=== PATIENT | male | born 1995 | race Caucasian/White ===

== ENCOUNTER 2017-05-23 19:42 | Observation (INO) | payer OTHER ==
[~2017-05-23] VITALS: Ht 182.9 cm; Wt 89.8 kg
[2017-05-23] MEDS ORDERED: SODIUM CHLORIDE 0.9% 1000ML 1,000 ML IV STA ×2 (19:51→21:29)
[2017-05-23] MEDS ORDERED: DiphenhydrAMINE HCL 50 MG/ML VIAL IV STA (19:51)
[2017-05-23] MEDS ORDERED: RANITIDINE HCL 50 MG/100 ML D5W IV STA (19:51)
[2017-05-23] MEDS ORDERED: METHYLPREDNISOLONE 125 MG VIAL IV STA (19:51)
[2017-05-23] MEDS ORDERED: EpINEphrine INJ 1MG/ML AMP 1 MG/ML AMP IM STA (19:52)
--- NOTE | 2017-05-23 19:57 | EMERGENCY ROOM VISIT NOTE ---
History Report prepared by Scribe: Kristen Harrison Under the Supervision of: Dr. Alonso Salvador D.O. First contact with patient: 19:49 Chief Complaint: ALLERGIC REACTION Stated Complaint: ALLERGIC REACTION History of Present Illness The patient is a 22 year old male who presents to the Emergency Room with complaints of an allergic reaction that started prior to arrival. He admits to a history of severe allergies to peanuts and tree nuts. This evening, he was out to dinner for [place] food with his girlfriend when after eating, he started to feel itchy all over and his throat felt like it was "tightening". He denies any chest pain. He took 1 Benadryl when he got home that provided minimal relief. He admits to some lightheadedness but denies any nausea or vomiting. The patient states his only medical problem is allergies and he takes daily Zyrtec. Source of History: patient Onset: ENVIRONMENTAL LEAD Position: other (global) Timing: constant Modifying Factors (Relieving): other (Benadryl) Associated Symptoms: No chest pain, No nausea, No vomiting Review of Systems See HPI for pertinent positives & negatives. A total of 10 systems reviewed and were otherwise negative. Past Medical & Surgical Medical Problems: (1) Allergic reaction (2) Peanut allergy (3) Tree nut allergy Social History Smoking Status: Never Smoker Alcohol Use: occasionally Drug Use: none Marital Status: single Housing Status: lives with roommate Occupation Status: [employer] student Current/Historical Medications Scheduled Cetirizine (Zyrtec), 10 MG PO DAILY Allergies Coded Allergies: Shellfish (Verified Allergy, Intermediate, hives, 05/23/17) NUTS (Verified Allergy, Unknown, hives, 05/23/17) Physical Exam Vital Signs Date Time Temp Pulse Resp B/P (MAP) Pulse Ox O2 Delivery O2 Flow Rate FiO2 05/23/17 21:35 120 24 113/66 91 Nebulizer 05/23/17 20:51 119 20 111/61 95 Room Air 05/23/17 19:55 121 05/23/17 19:53 97 Room Air 05/23/17 19:52 Room Air 97 05/23/17 19:45 36.5 132 20 120/54 100 Room Air Physical Exam GENERAL: Patient is awake, alert and mildly anxious appearing EYES: Bilateral conjunctival injection. The pupils are round and reactive. EARS, NOSE, MOUTH AND THROAT: Mild uvular hypertrophy, no drooping or stridor noted. The nose is without any evidence of any deformity. Mucous membranes are moist tongue is midline NECK: The neck is nontender and supple. RESPIRATORY: Normal respiratory effort is noted there is no evidence of wheezing rhonchi or rales CARDIOVASCULAR: Tachycardic heart rate, regular rhythm noted, there no murmurs rubs or gallops noted to auscultation, normal S1 normal S2 GASTROINTESTINAL: The abdomen is soft. Bowel sounds are present in all quadrants. Abdomen is nontender MUSCULOSKELETAL/EXTREMITIES: There is no evidence of gross deformity full range of motion is noted in the hips and shoulders SKIN: Generalized erythema and flushing noted, consistent with allergic reaction. There are no petechiae, pallor or cyanosis noted. NEUROLOGIC: Patient is awake alert and oriented x3 Medical Decision & Procedures Medications Administered Medications (Trade) Dose Ordered Sig/Elsie Route Start Time Stop Time Status Last Admin Dose Admin Sodium Chloride 1,000 ml @ 999 mls/hr Q1H1M STAT IV 05/23/17 19:51 05/23/17 20:51 DC 05/23/17 20:09 999 MLS/HR Methylprednisolone Sodium Succinate (Solu-Medrol IV) 125 mg NOW STAT IV 05/23/17 19:51 05/23/17 19:52 DC 05/23/17 20:03 125 MG Diphenhydramine HCl (Benadryl Inj) 50 mg NOW STAT IV 05/23/17 19:51 05/23/17 19:52 DC 05/23/17 20:04 50 MG Ranitidine HCl (zANTac IV) 50 mg NOW STAT IV 05/23/17 19:51 05/23/17 19:52 DC 05/23/17 20:05 50 MG Epinephrine HCl (EpINEphrine INJ 1MG/ML AMP/VIAL) 0.3 mg NOW STAT IM 05/23/17 19:52 05/23/17 19:53 DC 05/23/17 20:06 0.3 MG Ondansetron HCl (Zofran Inj) 4 mg NOW STAT IV 05/23/17 20:45 05/23/17 20:50 DC 05/23/17 20:51 4 MG Albuterol/ Ipratropium (Duoneb) 3 ml NOW STAT INH 05/23/17 21:29 05/23/17 21:30 DC 05/23/17 21:32 3 ML Epinephrine (Epipen) 0.3 mg NOW STAT IM 05/23/17 21:29 05/23/17 21:30 DC 05/23/17 21:38 0.3 MG Dexamethasone Sodium Phosphate (Decadron Inj) 10 mg NOW ONCE IV 05/23/17 21:30 05/23/17 21:31 DC 05/23/17 21:35 10 MG Sodium Chloride 1,000 ml @ 999 mls/hr Q1H1M STAT IV 05/23/17 21:29 05/23/17 22:29 DC 05/23/17 21:37 999 MLS/HR ED Course 1950: The patient was evaluated in room B2. A complete history and physical examination were performed. 1950: Zantac 50 mg IV, Benadryl 50 mg IV, Solu-Medrol 125 mg IV, NSS 1000 ml @ 999 mls/hr IV. 1951: Epinephrine HCl 0.3 mg IM. 2044: Zofran 4 mg IV. 2128: NSS 1000 ml @ 999 mls/hr IV, Epipen 0.3 mg IM, DuoNeb 3 ml INH. 2129: Decadron 10 mg IV. 2138: I discussed the patients case with Dr. Werner, [facility] Hospitalist. The patient will be further evaluated. Medical Decision Prior records/ancillary studies reviewed. Triage Nursing notes reviewed. The patient's history was concerning for possible allergic reaction. Differential diagnosis: Etiologies such as allergic reaction, anaphylaxis, urticaria, Copeland-Gary syndrome, toxic epidermal necrolysis, erythema multiforme, cellulitis, as well as others were entertained. The patient is a 22-year-old male who has a allergy to peanuts who presented to the emergency department after eating [place] food and developed urticaria. He states that he normally would've given himself his EpiPen but he did not have on with him. The patient had significant flushing and had some swelling in the oropharynx. He was treated with steroids and antihistamines and epinephrine initially. His symptoms initially improved but he started to have a rebound effect. He was treated again with epinephrine and bronchodilator therapy. He started to have hypoxia. He was treated with a DuoNeb at that time. He was reevaluated multiple times. Because of his ongoing symptoms I discussed his case with the on-call [facility] hospitalist group. They've agreed to evaluate the patient in the emergency department for further management and disposition. Medication Reconcilliation Current Medication List: was personally reviewed by me Blood Pressure Screening Patient's blood pressure: Normal blood pressure Blood pressure disposition: Did not require urgent referral Consults Time Called: 2134 Consulting Physician: Dr. Werner [facility] Hospitalist Returned Call: 2138 I discussed the patients case with Dr. Werner [facility] Hospitalist. The patient will be further evaluated. Impression Primary Impression: Anaphylaxis Additional Impression: Hypoxia Scribe Attestation The scribe's documentation has been prepared under my direction and personally reviewed by me in its entirety. I confirm that the note above accurately reflects all work, treatment, procedures, and medical decision making performed by me. Departure Information Dispostion Being Evaluated By Hospitalist Patient Instructions My [facility] Health Problem Qualifiers Primary Impression: Anaphylaxis Encounter type: initial encounter Qualified Codes: T78.2XXA - Anaphylactic shock, unspecified, initial encounter
[2017-05-23] MEDS ORDERED: ONDANSETRON INJ 2 MG/ML 2 ML VIAL IV STA (20:45)
[2017-05-23] MEDS ORDERED: CETI10TA84 PO (21:15)
[2017-05-23] MEDS ORDERED: EPINEPHRINE ADULT AUTO-INJECT 0.3 MG SYR IM STA (21:29)
[2017-05-23] MEDS ORDERED: ALBUT/IPRATROP 3MG/0.5MG NEB 3 ML VIAL INH STA (21:29)
[2017-05-23] MEDS ORDERED: DEXAMETHASONE SOD INJ 10 MG/ML VIAL IV ONE (21:30)
[2017-05-23] MEDS ORDERED: POLYETHYLENE (MIRALAX) 17 GM PACK PO PRN (22:15)
[2017-05-23] MEDS ORDERED: MAGNESIUM HYDROXIDE SUSP 30 ML UDC PO PRN (22:15)
[2017-05-23] MEDS ORDERED: METHYLPREDNISOLONE IV 60 MG in SYRINGE 0 ML IV SCH (22:15)
[2017-05-23] MEDS ORDERED: DiphenhydrAMINE INJ 50 MG in SYRINGE 0 ML IV SCH (22:15)
[2017-05-23] MEDS ORDERED: ALUMINUM/MAGNESIUM/SIMETH (MAALOX MAX) 30 ML UDC PO PRN (22:15)
[2017-05-23] MEDS ORDERED: ACETAMINOPHEN 325 MG TAB PO PRN (22:15)
[2017-05-23] MEDS ORDERED: ONDANSETRON INJ 2 MG/ML 2 ML VIAL IV PRN (22:15)
--- NOTE | 2017-05-23 22:26 | History and Physical ---
History & Physical Date & Time of Service: May 23, 2017 at 22:16 Chief Complaint: Allergic Reaction Primary Care Physician: [facility] History of Present Illness Source: patient The patient is a 22 year male who presents with acute shortness of breath. He has a know allergy to tree nuts, peanuts fish and shellfish. He was out this afternoon eating at a [employer] restaurant. He a burrito (does not recall any peanut products being in it), and he suddenly had shortness of breath. He denies wheezing. He did feel slightly lightheaded without losing consciousness. He did state progressive itching across his whole body, and initially states he had hives. He is meant to carry around an epipen but did not have it. His girlfriend drove him to the ED for further evaluation. In the ED was noted to by hypoxic. He was treated with 2 rounds of epinephrine IM, Solu-medrol, Dexamethasone, Benadryl and Ranitidine. He was also treated with Duonebs. He notes that he currently feels good and denies feeling short of breath. He denies feeling his throat closing off, tingling in his throat or feeling hoarse. Past Medical/Surgical History Seasonal allergies Right Rotator Cuff surgery Family History HTN Social History Smoking Status: Never Smoker Smokeless Tobacco Use: No Alcohol Use: none Drug Use: none Marital Status: single Housing status: lives with friends, lives with roommate Occupational Status: [employer] student Immunizations History of Influenza Vaccine: Unknown History of Tetanus Vaccine?: Unknown History of Pneumococcal: Unknown History of Hepatitis B Vaccine: Unknown Multi-Drug Resistant Organisms History of MDRO: No Allergies Coded Allergies: Shellfish (Verified Allergy, Intermediate, hives, 05/23/17) NUTS (Verified Allergy, Unknown, hives, 05/23/17) Home Medications Scheduled Cetirizine (Zyrtec), 10 MG PO DAILY Review of Systems Constitutional: No fever, No chills, No sweats Eyes: No eye pain, No redness, No discharge ENT: No nasal symptoms, No sore throat, No tinnitus Respiratory: No cough, No sputum, No wheezing Cardiovascular: No chest pain, No claudication, No palpitations Abdomen: No pain, No nausea, No vomiting, No diarrhea, No constipation Genitourinary - Male: No dysuria, No urinary frequency Neurologic: No paralysis, No weakness, No numbness/tingling, No vertigo Psychiatric: No anhedonism, No anxiety, No insomnia Hematologic / Lymphatic: No clotting problems, No swollen lymph nodes, No night sweats Integumentary: No rash, No itch, No new/changing skin lesions, No color change Physical Exam Vital Signs Date Time Temp Pulse Resp B/P (MAP) Pulse Ox O2 Delivery O2 Flow Rate FiO2 05/23/17 21:35 120 24 113/66 91 Nebulizer 05/23/17 20:51 119 20 111/61 95 Room Air 05/23/17 19:55 121 05/23/17 19:53 97 Room Air 05/23/17 19:52 Room Air 97 05/23/17 19:45 36.5 132 20 120/54 100 Room Air General Appearance: WD/WN, no apparent distress Head: normocephalic, atraumatic Eyes: normal inspection, EOMI ENT: hearing grossly normal, pharynx normal Neck: supple, no adenopathy, no JVD Respiratory/Chest: lungs clear, no respiratory distress Cardiovascular: regular rate, rhythm, no gallop, no murmur Abdomen/GI: normal bowel sounds, non tender, soft Back: no CVA tenderness, no muscle spasm Extremities/Musculoskelatal: no calf tenderness, no pedal edema Neurologic/Psych: alert, normal mood/affect, oriented x 3 Skin: normal color, warm/dry, no rash Lymphatic: no adenopathy Impression Assessment and Plan Pleasant 22 year old male with allergic reaction. Patient is being admitted due to persistent hypoxia and hives following ED evaluation. Labs are pending at this time. He needs to be monitored for rebound allergic reaction. Our plan is as follows: Allergic Reaction, concern for anaphylaxis - 2/2 possible occult peanut exposure - Solu-\Medrol 60 mg q6h - Benadryl 5 mg q6h + Famotidine - NSS + 20 KCl @ 125 ml/hr - EpiPen PRN for symptoms of anaphylaxis - [place] patient on having Epipen on at all times Seasonal Allergies - Hold Zyrtec given regimen above; can re-start as outpatient DVT Prophylaxis - SCD Knee, SHANTHI Hose Code Status - Level I Full Code Disposition - Telemetry Attending Addendum: I have physically seen and examined this patient, have directed the resident's medical activities, and agree with the H&P as noted above with the following exceptions as noted. The patient is awake, alert and oriented 3, well-developed and well-nourished , normocephalic and atraumatic, lying in bed and in no acute distress. HEENT--PERRL, EOMI, mucous membranes and oropharynx dry. Neck--supple, no JVD or bruits, thyroid normal, trachea midline, no adenopathy. Heart--normal S1 and S2, no extra beats, no murmurs, rubs or gallops. Lungs--clear bilaterally with good air movement, no respiratory distress, no accessory muscle use. Abdomen--normal bowel sounds and soft, nontender and nondistended, no hernias or masses, no organomegaly. Extremities--no cyanosis, clubbing or edema. There are good distal pulses b/l. Dermatologic--normal skin turgor, mildly erythematous with light macular rash, warm and dry, no abnormal lymph nodes. Neurologic--cranial nerves II through XII grossly intact, motor and sensory examination normal. Rheumatologic--normal range of motion, nontender, muscles and joints. Psychiatric--normal affect. Assessment and Plan: Anaphylactic reaction/known allergy to peanuts/question occult peanut exposure or new process-- Admit to the telemetry unit. Solu-Medrol 60 mg IV every 6 hours Benadryl 50 mg IV every 6 hours Famotidine 20 mg IV every 12 hours NSS plus KCl 20 mEq at 125 ML's per hour The patient does follow with an warehouse loader in [place] hometown. Advised him to avoid eating out at restaurants for now, and make a follow-up appointment with his warehouse loader at his earliest convenience. He can resume Zyrtec as an outpatient, or consider Xyzal. Level of Care Telemetry Advanced Directives Existing Advance Directive: No Existing Living Will: No Existing Power of Wax Ball Molder: No Resuscitation Status FULL RESUSCITATION VTE Prophylaxis VTE Risk Assessment Done? Y/N: Yes Risk Level: Moderate Given or contraindicated: TBright Stockings, SCD's Social Service Consult None Apply
[2017-05-23] MEDS ORDERED: EPINEPHRINE JUNIOR AUTO-INJECT 0.15 MG SYR IM PRN (22:30)
[2017-05-23 23:15] VITALS: BP 148/79; PULSE 108; TEMP 36.4; O2SAT 97; Ht 182.9 cm; Wt 89.8 kg
[2017-05-23] MEDS ORDERED: IV FLUIDS COMPLETED PRN (23:15)
[2017-05-23 23:47] LABS: HEMATOCRIT 46.1 % (42-52); MEAN CELL VOLUME 84.1 fL (80-100); MEAN CORPUSCULAR HEMOGLOBIN 30.8 pg (25-34); MEAN CORPUSCULAR HGB CONC 36.7 g/dl (32-36); MEAN PLATELET VOLUME 11.5 fL (7.4-10.4); PLATELET COUNT 194 K/uL (130-400); RED BLOOD COUNT 5.48 M/uL (4.7-6.1); WHITE BLOOD COUNT 12.59 K/uL (4.8-10.8)
[2017-05-23 23:59] VITALS: O2SAT 97
[2017-05-24 00:05] LABS: BUN/CREATININE RATIO 13.6 (10-20); CALCIUM 8.8 mg/dl (8.5-10.1); CREATININE 1.4 mg/dl (0.60-1.40); POTASSIUM 3.5 mmol/L (3.5-5.1)
[2017-05-24] MEDS: NSS + 20MEQ KCL 1000ML 1,000 ML IV SCH ×2 (00:06→07:53)
[2017-05-24] MEDS ORDERED: INFLUENZA VIRUS QUAD VACCINE 0.5 ML SYR IM. ONE (00:30)
[2017-05-24] MEDS ORDERED: INFLUENZA ADMINISTRATION CHARGE ONE (00:30)
[2017-05-24] MEDS: DiphenhydrAMINE HCL 50 MG/ML VIAL IV SCH ×2 (01:39→08:00)
[2017-05-24 03:47] VITALS: BP 121/68; PULSE 64; TEMP 37; O2SAT 95
[2017-05-24 04:00] VITALS: O2SAT 97
[2017-05-24] MEDS ORDERED: FAMOTIDINE IV INJ 20 MG in DEXTROSE 5% 100ML 100 ML IV SCH (04:00)
[2017-05-24] MEDS ORDERED: METHYLPREDNISOLONE IV 60 MG in SYRINGE 0 ML IV SCH (04:15)
[2017-05-24 06:50] LABS: HEMATOCRIT 44.8 % (42-52); MEAN CELL VOLUME 85.2 fL (80-100); MEAN CORPUSCULAR HEMOGLOBIN 30.6 pg (25-34); MEAN CORPUSCULAR HGB CONC 35.9 g/dl (32-36); MEAN PLATELET VOLUME 11.4 fL (7.4-10.4); PLATELET COUNT 167 K/uL (130-400); RED BLOOD COUNT 5.26 M/uL (4.7-6.1)
[2017-05-24 06:55] VITALS: PULSE 73; O2SAT 98
[2017-05-24 07:16] VITALS: BP 120/60; PULSE 78; TEMP 36.8; O2SAT 99
[2017-05-24 07:27] LABS: CALCIUM 9.7 mg/dl (8.5-10.1); CREATININE 1.2 mg/dl (0.60-1.40); POTASSIUM 4.6 mmol/L (3.5-5.1)
[2017-05-24] MEDS ORDERED: ALBUT/IPRATROP 3MG/0.5MG NEB 3 ML VIAL INH SCH (08:00)
[2017-05-24] MEDS ORDERED: DIPH25CA65 PO (08:58)
[2017-05-24] MEDS ORDERED: PRED10TA PO ×2 (08:58→09:26)
--- NOTE | 2017-05-24 08:59 | Discharge Instructions ---
Discharge Instructions Date of Service May 24, 2017. Admission Reason for Admission: Allergic Reaction Discharge Discharge Diagnosis / Problem: Anaphylaxis Discharge Goals Goal(s): Improve disease control Activity Recommendations Activity Limitations: as noted below No driving for 8 hours after taking Benadryl . Instructions / Follow-Up Instructions / Follow-Up You were diagnosed with anaphylaxis. You were treated with epinephrine x2, steroids and anti-histamines. Please take your EpiPen with you wherever you go and have one at home. Please follow up with your primary care provider in 1-2 weeks for a recheck of your condition. Current Hospital Diet Patient's current hospital diet: Regular Diet Discharge Diet Recommended Diet: Regular Diet Pending Studies Studies pending at discharge: no Medical Emergencies . Who to Call and When: Medical Emergencies: If at any time you feel your situation is an emergency, please call 911 immediately. . Non-Emergent Contact Non-Emergency issues call your: Primary Care Provider . . "Provider Documentation" section prepared by Darryn Neely. . VTE Core Measure Inpt VTE Proph given/why not?: Edmar Barnes, PACO's
--- NOTE | 2017-05-24 09:32 | Discharge Summary ---
Discharge Summary Date of Service May 24, 2017. (Darryn Neely MD) Discharge Summary Admission Date: May 23, 2017 at 22:08 Discharge Date: May 24, 2017 Discharge Disposition: Home Principal Diagnosis: Anaphylaxis Immunizations: Have You Had Influenza Vaccine: Unknown History of Tetanus Vaccine?: Unknown History of Pneumococcal: Unknown History of Hepatitis B Vaccine: Unknown (Darryn Neely MD) Medication Reconciliation New Medications: Diphenhydramine Hcl (Benadryl Allergy) 25 Mg Cap 2 CAP PO BID for 3 Days, #60 CAP 2 Refills Prednisone (Prednisone) 10 Mg Tab 10 MG PO UD for 3 Days, #7 TAB Discontinued Medications: Cetirizine (Zyrtec) 10 Mg Tab 10 MG PO DAILY, TAB Discharge Exam Feels well. No problems breathing. No lip swelling, tongue swelling or hives. All systems reviewed and otherwise negative. Physical Exam: General Appearance: WD/WN, no apparent distress Eyes: normal inspection (pupils equal) ENT: normal ENT inspection, pharynx normal Neck: supple Respiratory/Chest: chest non-tender, lungs clear, normal breath sounds, no respiratory distress, no accessory muscle use Cardiovascular: regular rate, rhythm, no edema, no murmur, normal peripheral pulses Abdomen / GI: normal bowel sounds, non tender, soft Extremities: no calf tenderness, normal capillary refill, no pedal edema Neurologic/Psychiatric: no motor/sensory deficits, alert, oriented x 3 Skin: normal color, warm/dry, no rash (Darryn Neely MD) Hospital Course Mr Raman is a 22 year male who presents with acute shortness of breath. He has a know allergy to tree nuts, peanuts fish and shellfish. He ate out at a [employer] restaurant, ate a burrito (does not recall any peanut products being in it) and he suddenly had shortness of breath. He denies wheezing. He did feel slightly lightheaded without losing consciousness. He did state progressive itching across his whole body, and initially states he had hives. He is meant to carry around an epipen but did not have it. His girlfriend drove him to the ED for further evaluation. In the ED was noted to by hypoxic. He was treated with 2 rounds of epinephrine IM, Solu-medrol, Dexamethasone, Benadryl and Ranitidine. He was also treated with Duonebs. He improved overnight and is now medically stable for discharge and will take benadryl and a tapering dose of prednisone. He should follow up with his PCP within the next 1-2 weeks for a recheck of his condition. Total Time Spent: Less than 30 minutes This includes examination of the patient, discharge planning, medication reconciliation, and communication with other providers. (Darryn Neely MD) Resident Physician Supervision Note: I interviewed and examined the patient. Discussed with Dr. Neely and agree with findings and plan as documented in the note. Any exceptions or clarifications are listed here: None Documented By: Ken Benites feelign good no breathing trouble no throat or tongue swelling feels good overall. family present. all pleased with his progress vitals noted nad breathing unlabored no pallor or icterus allergies with near-anaphylaxis response - improved. stable for home, short course of steroids and benadryl (Ken Benites, D.O.) Discharge Instructions Please refer to the electronic Patient Visit Report (Discharge Instructions) for additional information. (Darryn Neely MD) Follow-Up 1-2 weeks with PCP (Darryn Neely MD) Additional Copies To [facility]
[2017-05-24 09:35] VITALS: BP 120/60; PULSE 78; TEMP 36.8; O2SAT 99
== END 2017-05-24 10:10 | disposition home or self-care (01) ==
LOC: C.EDB 19:44 → C.2T 22:08 → CANRESERV 22:26 → ENRESERV 22:26
PROVIDERS: ADMIT Student in an Organized Health Care Education/Training Program; ATTEND Family Medicine
DX: T78.2XXA Anaphylactic shock, unspecified, initial encounter (principal); Z98.890 Other specified postprocedural states; Z82.49 Family history of ischemic heart disease and other diseases of the circulatory system

== ENCOUNTER 2017-11-09 21:39 | Emergency (ER) | payer OTHER ==
[~2017-11-09] VITALS: Ht 180.3 cm; Wt 90.0 kg
[~2017-11-09 21:39] MED LIST: DIPH25CA65 PO; PRED10TA PO
[2017-11-09 21:41] VITALS: TEMP 37.1; Ht 180.3 cm; Wt 90.0 kg
[2017-11-09] MEDS ORDERED: SODIUM CHLORIDE 0.9% 1000ML 1,000 ML IV STA (22:09)
[2017-11-09] MEDS ORDERED: PROB1TAB16 PO (22:13)
[2017-11-09] MEDS ORDERED: FLUT0.15 NAE (22:13)
[2017-11-09] MEDS ORDERED: EPP3/2 IM (22:13)
[2017-11-09] MEDS ORDERED: CETI10TA84 PO (22:13)
[2017-11-09] MEDS ORDERED: IBUP-103 PO (22:15)
[2017-11-09 22:35] VITALS: O2SAT 97
[2017-11-09 22:41] LABS: BASO % 0.5 %; BASO ABS # 0.03 K/uL (0-0.2); EOS % 5.2 %; EOS ABS # 0.29 K/uL (0-0.5); HEMATOCRIT 45.1 % (42-52); HEMOGLOBIN 16.4 g/dL (14.0-18.0); IG# 0.01 K/uL (0.00-0.02); LYMPH % 22.9 %; LYMPH ABS # 1.28 K/uL (1.2-3.4); MEAN CORPUSCULAR HEMOGLOBIN 30.5 pg (25-34); MEAN CORPUSCULAR HGB CONC 36.4 g/dl (32-36); MEAN PLATELET VOLUME 10.1 fL (7.4-10.4); MONO % 11.3 %; MONO ABS # 0.63 K/uL (0.11-0.59); NEUT % 59.9 %; NEUT ABS # 3.35 K/uL (1.4-6.5); PLATELET COUNT 154 K/uL (130-400); RED CELL DISTRIBUTION WIDTH CV 12.1 % (11.5-14.5); RED CELL DISTRIBUTION WIDTH SD 36.8 fL (36.4-46.3); WHITE BLOOD COUNT 5.59 K/uL (4.8-10.8)
[2017-11-09 23:04] LABS: ALBUMIN 3.6 gm/dl (3.4-5.0); CALCIUM 9.2 mg/dl (8.5-10.1); CREATININE 1.33 mg/dl (0.60-1.40); POTASSIUM 3.9 mmol/L (3.5-5.1)
[2017-11-09 23:15] LABS: TOTAL PROTEIN 7.2 gm/dl (6.4-8.2)
[2017-11-09 23:25] VITALS: BP 128/85; PULSE 76; O2SAT 99
--- NOTE | 2017-11-10 04:18 | EMERGENCY ROOM VISIT NOTE ---
History First contact with patient: 21:52 Chief Complaint: HEADACHE Stated Complaint: PINON,DIZZINESS,LIGHTHEADED,SORE THROAT,STOMACH History of Present Illness The patient is a 22 year old male who presents to the Emergency Room with complaints of lightheadedness mild throat discomfort and slight headache for the past few days who had flulike illness over the weekend with vomiting and diarrhea. Patient had a decreased appetite since then. Patient states in the morning he wakes up with a slightly scratchy throat but none currently. Patient denies fevers, chest pain, dyspnea, neck stiffness, abdominal pain, urinary symptoms, cough, congestion. He is tolerating p.o. fluids but has a lack of appetite. Review of Systems An 10 system review of systems was completed with positives and pertinent negatives listed in the HPI. Past Medical/Surgical History Medical Problems: (1) Allergic reaction (2) Peanut allergy (3) Tree nut allergy Social History Smoking Status: Never Smoker Alcohol Use: occasionally Drug Use: none Marital Status: single Housing Status: lives with roommate Occupation Status: [employer] student Current/Historical Medications Scheduled Cetirizine (Zyrtec), 10 MG PO DAILY Fluticasone Propionate (Nasal) (Flonase Allergy Relief), 2 SPRAYS SALOME DAILY Probiotic Product (Probiotic), 1 TAB PO DAILY Scheduled PRN Epinephrine (Epipen), 0.3 MG IM UD PRN for Allergic Reaction Ibuprofen Tab (Advil), 200 MG PO UD PRN for Headache or Pain Physical Exam Vital Signs Date Time Temp Pulse Resp B/P (MAP) Pulse Ox O2 Delivery O2 Flow Rate FiO2 11/09/17 23:25 76 18 128/85 99 Room Air 11/09/17 22:35 97 Room Air 11/09/17 22:35 97 Room Air 11/09/17 22:31 101 11/09/17 22:28 75 18 136/73 97 Room Air 89 136/85 94 123/80 11/09/17 21:41 37.1 94 20 133/89 99 Room Air Physical Exam VITALS: Vitals are noted on the nurse's note and reviewed by myself. Vital signs stable. GENERAL: Pleasant male, in no acute distress, nondiaphoretic, well-developed well-nourished. SKIN: The skin was without rashes, erythema, edema, or bruising. There is no tenting of the skin. Capillary reflex less than 2 seconds. HEAD: Normocephalic atraumatic. EARS: External auditory canals clear, tympanic membranes pearly méndez without erythema or effusion bilaterally. EYES: Pupils equal round and reactive to light and accommodation. Conjunctivae without injection, sclerae without icterus. Extraocular movements intact. NOSE: Patent, turbinates without inflammation or discharge. No sinus tenderness. MOUTH: Mucous membranes mildly dry pharynx without erythema or exudate. Uvula midline. Airway patent. Tongue does not deviate. NECK: Supple without nuchal rigidity. No lymphadenopathy. No thyromegaly. Cervical spine is nontender. No JVD. HEART: Regular rate and rhythm without murmurs gallops or rubs. LUNGS: Clear to auscultation bilaterally without wheezes, rales or rhonchi. No retractions or accessory muscle use. ABDOMEN: Positive bowel sounds x 4. Normal tympanic percussion. Soft, nontender, without masses or organomegaly. Godinez sign negative. No guarding or rebound tenderness. No CVA tenderness MUSCULOSKELETAL: No muscle atrophy, erythema, or edema noted. NEURO: Patient was alert and oriented to person place and time. Normal sensation to light and sharp touch. No focal neurological deficits. Medical Decision & Procedures Laboratory Results 11/09/17 22:25 Red Blood Count 5.37, Mean Corpuscular Volume 84.0, Mean Corpuscular Hemoglobin 30.5, Mean Corpuscular Hemoglobin Concent 36.4, Mean Platelet Volume 10.1, Neutrophils (%) (Auto) 59.9, Lymphocytes (%) (Auto) 22.9, Monocytes (%) (Auto) 11.3, Eosinophils (%) (Auto) 5.2, Basophils (%) (Auto) 0.5, Neutrophils # (Auto ) 3.35, Lymphocytes # (Auto) 1.28, Monocytes # (Auto) 0.63, Eosinophils # (Auto ) 0.29, Basophils # (Auto) 0.03 11/09/17 22:25 Test 11/09/17 22:25 White Blood Count 5.59 K/uL (4.8-10.8) Red Blood Count 5.37 M/uL (4.7-6.1) Hemoglobin 16.4 g/dL (14.0-18.0) Hematocrit 45.1 % (42-52) Mean Corpuscular Volume 84.0 fL (80-100) Mean Corpuscular Hemoglobin 30.5 pg (25-34) Mean Corpuscular Hemoglobin Concent 36.4 g/dl (32-36) Platelet Count 154 K/uL (130-400) Mean Platelet Volume 10.1 fL (7.4-10.4) Neutrophils (%) (Auto) 59.9 % Lymphocytes (%) (Auto) 22.9 % Monocytes (%) (Auto) 11.3 % Eosinophils (%) (Auto) 5.2 % Basophils (%) (Auto) 0.5 % Neutrophils # (Auto) 3.35 K/uL (1.4-6.5) Lymphocytes # (Auto) 1.28 K/uL (1.2-3.4) Monocytes # (Auto) 0.63 K/uL (0.11-0.59) Eosinophils # (Auto) 0.29 K/uL (0-0.5) Basophils # (Auto) 0.03 K/uL (0-0.2) RDW Standard Deviation 36.8 fL (36.4-46.3) RDW Coefficient of Variation 12.1 % (11.5-14.5) Immature Granulocyte % (Auto) 0.2 % Immature Granulocyte # (Auto) 0.01 K/uL (0.00-0.02) Anion Gap 5.0 mmol/L (3-11) Est Creatinine Clear Calc Drug Dose 94.3 ml/min Estimated GFR () 88.6 Estimated GFR (Non- 76.4 BUN/Creatinine Ratio 10.0 (10-20) Calcium Level 9.2 mg/dl (8.5-10.1) Total Bilirubin 0.4 mg/dl (0.2-1) Direct Bilirubin 0.1 mg/dl (0-0.2) Aspartate Amino Transf (AST/SGOT) 16 U/L (15-37) Alanine Aminotransferase (ALT/SGPT) 27 U/L (12-78) Alkaline Phosphatase 55 U/L (45-117) Total Protein 7.2 gm/dl (6.4-8.2) Albumin 3.6 gm/dl (3.4-5.0) Thyroid Stimulating Hormone (TSH) 2.140 uIu/ml (0.300-4.500) Monoscreen NEG (NEG) Medications Administered Medications (Trade) Dose Ordered Sig/Elsie Route Start Time Stop Time Status Last Admin Dose Admin Sodium Chloride 1,000 ml @ 999 mls/hr Q1H1M STAT IV 11/09/17 22:09 11/09/17 23:09 DC 11/09/17 22:32 999 MLS/HR ED Course Prior records/ancillary studies reviewed and summarized above. Nursing notes reviewed. The patient's history was concerning for lightheadedness. Differential diagnosis: Etiologies such as metabolic, infection, hypo/hyperglycemia, electrolyte abnormalities, cardiac sources, intracerebral event, toxicologic, neurologic, as well as others were entertained. Physical examination: As above. ER treatment provided: IV Lock IV fluids Positive orthostatics On reassessment the patient felt better. Diagnostics interpretation by me: ECG: Normal sinus, normal intervals, no acute ST-T wave changes. Impression normal sinus rhythm interpreted by myself The labs revealed negative mono spot. Stable H&H Exam and history seem consistent with lightheadedness most likely from dehydration. Patient had flulike illness over the weekend and has not been eating or drinking much since then. He felt better after being hydrated as above. He was tolerating fluids. He was neurovascularly and neurologically intact. He was advised to rest, stay well hydrated and follow-up health services in a few days here in the ER sooner for high fevers, lethargy, neck stiffness, worsening signs or symptoms or as needed. By the evaluation outlined above emergent etiologies such as infection, electrolyte abnormalities, cardiac sources, intracerebral event, toxologic, neurologic, abnormalities blood glucose, metabolic, as well as others were deemed relatively unlikely. The pt informed about the findings as listed above. All questions were answered and pleased with the treatment. Return instructions were outlined and the patient was discharged in stable condition. Referral: The patient was referred back to [facility]/ primary care physician for follow-up in 2 to 3 days for a recheck of the current condition. The chart was completed utilizing [employer] voice recognition software. Grammatical errors, random word insertions, pronoun errors, and incomplete sentences are an occassional consequence of this system due to software limitations, ambient noise, and hardware issues. Any formal questions or concerns about the content, text, or information contained within the body of this dictation should be directly addressed to the physician assistant branch operations manager for clarification. Medical Decision As above Medication Reconcilliation Current Medication List: was personally reviewed by me Blood Pressure Screening Patient's blood pressure: Normal blood pressure Impression Primary Impression: Dehydration Departure Information Dispostion Home / Self-Care Condition GOOD Forms HOME CARE DOCUMENTATION FORM, School Instructions, Return To School: 1 day IMPORTANT VISIT INFORMATION Patient Instructions Dehydration, [facility] Additional Instructions Rest and drink plenty of fluids as tolerated. Continue current medications. Return to the ER immediately for worsening or persistent lightheadedness, abdominal pain, vomiting, fevers, chest pains, difficulty breathing, worsening of your condition, or as needed. Follow up with your primary physician in 2-3 days for a recheck of your current condition. School Instructions Return To School: 1 day
== END 2017-11-09 23:51 | disposition home or self-care (01) ==
LOC: C.EDB 21:40 → C.EDC 23:51
DX: E86.0 Dehydration (principal)